=== PATIENT | female | born 1985 | race African-American/Black ===

== ENCOUNTER 2016-08-28 14:02 | Emergency (ER) | payer SELFPAY | END 2016-08-28 14:49 | disposition left against medical advice (07) | LOC: ER 14:47 | DX: Z53.21 Procedure and treatment not carried out due to patient leaving prior to being seen by health care provider (principal) ==

== ENCOUNTER 2024-10-02 22:42 | Emergency (ER) | payer SELFPAY ==
[~2024-10-02] VITALS: Ht 157.5 cm; Wt 66.0 kg
[2024-10-02 22:53] VITALS: BP 146/91; PULSE 95; RESP 18; TEMP 36.7; O2SAT 100
== END 2024-10-03 01:25 | disposition left against medical advice (07) ==
LOC: ER 22:42
DX: R05.9 Cough, unspecified (principal); J45.909 Unspecified asthma, uncomplicated; Z53.21 Procedure and treatment not carried out due to patient leaving prior to being seen by health care provider